=== PATIENT | female | born 2000 | race Caucasian/White ===

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

== ENCOUNTER 2019-03-10 19:06 | Emergency (ER) | payer OTHER ==
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
[2019-03-10] MEDS ORDERED: CYCLOBENZAPRINE 10 MG TAB PO ONE (23:23)
[2019-03-10] MEDS ORDERED: IBUPROFEN 400 MG TAB PO ONE (23:23)
[2019-03-10] MEDS ORDERED: ACETAMINOPHEN 500 MG TAB PO ONE (23:23)
[2019-03-11 00:44] LABS: Color,Urine Straw (Yellow); HCG Qualitative,Urine Negative (Negative); Protein,Urine <15 mg/dL mg/dL (Negative)
[2019-03-11 00:45] LABS: Urobilinogen,Urine < 2.0 mg/dL (<2.0)
[2019-03-11 00:46] LABS: Blood,Urine NEG (Negative)
[2019-03-11 00:48] LABS: Ictotest,Urine NEG (Negative)
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
[2019-03-11 02:09] VITALS: BP 96/64
[2019-03-11 05:22] LABS: Bilirubin,Urine NEG (Negative)
== END 2019-03-11 02:46 | disposition home or self-care (01) ==
LOC: ED 19:06
DX: M62.830 Muscle spasm of back (principal); M62.838 Other muscle spasm; Z79.899 Other long term (current) drug therapy; V49.59XA Passenger injured in collision with other motor vehicles in traffic accident, initial encounter; Y93.89 Activity, other specified; Y92.410 Unspecified street and highway as the place of occurrence of the external cause; Y99.8 Other external cause status
CPT/HCPCS: 72040; 72100; 81001; 81025

== ENCOUNTER 2019-06-26 17:25 | Emergency (ER) | payer SELFPAY | END 2019-06-26 21:40 | disposition home or self-care (01) | LOC: ED 17:25 | DX: J02.9 Acute pharyngitis, unspecified (principal); F12.90 Cannabis use, unspecified, uncomplicated; Z79.899 Other long term (current) drug therapy | CPT/HCPCS: 36415; 71045; 80053; 82140; 82805; 85025; 85610; 86308; 87040; 87086; 87116; 87430; 96365; 96367; 96375; 99285; J0696; J1100; J1885; J2405; J7030 ==

== ENCOUNTER 2019-07-01 20:06 | Emergency (ER) | payer SELFPAY ==
[2019-07-01 21:16] LABS: Basophils % (Auto) 0.6 % (0.0-1.8); Eosinophils % (Auto) 0.5 % (0.0-4.3); Hematocrit 36.8 % (30.3-42.9); Hemoglobin 12.1 gm/dl (10.1-14.3); Lymphocytes # (Auto) 1.5 K/mm3 (1.2-5.4); Lymphocytes % (Auto) 19.3 % (13.4-35.0); Mean Corpuscular HGB Conc 33 % (30-34); Mean Corpuscular Volume 89 fl (79-97); Monocytes # (Auto) 0.6 K/mm3 (0.0-0.8); Monocytes % (Auto) 8.1 % (0.0-7.3); Platelet Count 378 K/mm3 (140-440); Red Blood Count 4.15 M/mm3 (3.65-5.03); Red Cell Distribution Width 14.4 % (13.2-15.2)
[2019-07-01 21:30] LABS: Alanine Aminotransferase 14 units/L (7-56); Albumin 3.6 g/dL (3.9-5); BUN/Creatinine Ratio 10; Blood Urea Nitrogen 7 mg/dL (7-17); Calcium 9.4 mg/dL (8.4-10.2); Hemolysis Index 29
[2019-07-01] MEDS ORDERED: ACETAMINOPHEN 500 MG TAB PO ONE (21:31)
--- NOTE | 2019-07-01 22:07 | Emergency Department Report ---
ED General Adult HPI - General Chief complaint: Upper Respiratory Infection Stated complaint: FEVER/BODY ACHES Time Seen by Provider: 07/01/19 21:30 Source: patient, EMS ( EMS documentation not available at time of chart dictation ), RN notes reviewed, old records reviewed Mode of arrival: Ambulatory Limitations: No Limitations - History of Present Illness Initial comments: Please note that for the patient's entire history and physical examination, I had on complete and appropriate personal protective equipment. The patient is a 19-year-old female. She is not known to myself previously. She complains of sore throat, fever, dry cough, body aches, chest wall tightness, malaise and fatigue. The patient is a rather poor historian. She reports that she tested positive for strep throat at another hospital, and was given antibiotics, presented to this hospital a few days ago for similar symptoms, had a negative throat culture, negative rapid strep, negative Monospot, negative chest x-ray, negative urinalysis, and was discharged with change in antibiotics and supportive care. Her symptoms of sore throat, cough, malaise and fever have been going on for about a week and 1/2 to 2 weeks. She denies oral contraceptive use, , recent and delivery, and denies DVT and pulmonary embolism risk factors. She indicates that she is feeling "dehydrated." The patient is also noted to be face timing and playing on a cellular phone. Patient reports no episodes of stool within the past 24 hours. She denies irritative and obstructive urinary symptoms. -: Gradual, week(s) Location: left, right, upper extremity, lower extremity Quality: aching Consistency: intermittent Improves with: rest Worsens with: movement - Related Data Previous Rx's Medication Instructions Recorded Last Taken Type Amoxicillin [Amoxicillin TAB] 875 mg PO BID #14 tablet 04/12/16 Unknown Rx Fluconazole [Diflucan TAB] 150 mg PO ONCE #1 tablet 04/12/16 Unknown Rx Neomy/Polymyx B/Hc (Otic) Soln 4 drops .ROUTE TID #1 bottle 04/12/16 Unknown Rx [Cortisporin (Otic) Soln] Amoxicillin 500 mg PO Q12H #20 capsule 03/03/18 Unknown Rx Ibuprofen [Motrin] 600 mg PO Q8H PRN #20 tablet 03/03/18 Unknown Rx Cyclobenzaprine HCl [Flexeril 5 MG 5 mg PO Q8H PRN #21 tab 03/11/19 Unknown Rx TAB] Ibuprofen [Motrin] 600 mg PO Q8H PRN #24 tablet 03/11/19 Unknown Rx Clindamycin [Clindamycin CAP] 300 mg PO Q8H #21 cap 06/26/19 Unknown Rx HYDROcodone/ACETAMINOPHEN 15 ml PO Q6H PRN #150 solution 06/26/19 Unknown Rx [Hydrocodon-Acetamin 7.5-325/15] Ondansetron [Zofran Odt] 4 mg PO Q8HR #10 tab.rapdis 06/26/19 Unknown Rx prednisoLONE [Prednisolone] 45 mg PO DAILY 5 Days solution 06/26/19 Unknown Rx Allergies Allergy/AdvReac Type Severity Reaction Status Date / Time No Known Allergies Allergy Verified 03/03/18 16:07 ED Review of Systems ROS: Stated complaint: FEVER/BODY ACHES Other details as noted in HPI Constitutional: fever, malaise, weakness Eyes: denies: eye discharge ENT: throat pain, congestion Respiratory: cough Cardiovascular: as per HPI. denies: syncope Gastrointestinal: diarrhea. denies: vomiting Genitourinary: as per HPI. denies: urgency Musculoskeletal: arthralgia, myalgia Skin: denies: lesions Neurological: as per HPI, weakness Psychiatric: as per HPI Hematological/Lymphatic: as per HPI ED Past Medical Hx - Past Medical History Previous Medical History?: No - Surgical History Past Surgical History?: No - Social History Smoking Status: Never Smoker - Medications Home Medications: Home Medications Medication Instructions Recorded Confirmed Last Taken Type Amoxicillin [Amoxicillin TAB] 875 mg PO BID #14 tablet 04/12/16 Unknown Rx Fluconazole [Diflucan TAB] 150 mg PO ONCE #1 tablet 04/12/16 Unknown Rx Neomy/Polymyx B/Hc (Otic) Soln 4 drops .ROUTE TID #1 bottle 04/12/16 Unknown Rx [Cortisporin (Otic) Soln] Amoxicillin 500 mg PO Q12H #20 capsule 03/03/18 Unknown Rx Ibuprofen [Motrin] 600 mg PO Q8H PRN #20 tablet 03/03/18 Unknown Rx Cyclobenzaprine HCl [Flexeril 5 MG 5 mg PO Q8H PRN #21 tab 03/11/19 Unknown Rx TAB] Ibuprofen [Motrin] 600 mg PO Q8H PRN #24 tablet 03/11/19 Unknown Rx Clindamycin [Clindamycin CAP] 300 mg PO Q8H #21 cap 06/26/19 Unknown Rx HYDROcodone/ACETAMINOPHEN 15 ml PO Q6H PRN #150 solution 06/26/19 Unknown Rx [Hydrocodon-Acetamin 7.5-325/15] Ondansetron [Zofran Odt] 4 mg PO Q8HR #10 tab.rapdis 06/26/19 Unknown Rx prednisoLONE [Prednisolone] 45 mg PO DAILY 5 Days solution 06/26/19 Unknown Rx ED Physical Exam - General Limitations: No Limitations General appearance: alert, in no apparent distress - Head Head exam: Present: atraumatic, normocephalic - Eye Eye exam: Present: normal appearance, EOMI. Absent: nystagmus - ENT ENT exam: Present: normal exam, normal orophraynx, mucous membranes moist, TM's normal bilaterally, normal external ear exam - Neck Neck exam: Present: normal inspection, full ROM. Absent: tenderness, meningismus - Respiratory Respiratory exam: Present: normal lung sounds bilaterally. Absent: respiratory distress, wheezes, rales, rhonchi, stridor, chest wall tenderness, accessory muscle use, decreased breath sounds, prolonged expiratory - Cardiovascular Cardiovascular Exam: Present: normal rhythm, tachycardia, normal heart sounds. Absent: systolic murmur, diastolic murmur, rubs, gallop - GI/Abdominal GI/Abdominal exam: Present: soft. Absent: distended, tenderness, guarding, rebound, rigid, pulsatile mass - Extremities Exam Extremities exam: Present: normal inspection, full ROM, other (2+ pulses noted in the bilateral upper and lower extremities. There is no palpable cord. negative Homans sign. Muscular compartments are soft. The pelvis is stable.). Absent: pedal edema, calf tenderness - Back Exam Back exam: Present: normal inspection, full ROM. Absent: tenderness, CVA tenderness (R), CVA tenderness (L), paraspinal tenderness, vertebral tenderness - Neurological Exam Neurological exam: Present: alert, oriented X3, normal gait, other (No facial droop. Tongue midline. Extraocular movements intact bilaterally. Facial sensation intact to light touch in V1, V2, V3 distribution bilaterally. 5 and a 5 strength in 4 extremities. Sensation intact to light touch in 4 extremities.). Absent: motor sensory deficit - Psychiatric Psychiatric exam: Present: flat affect - Skin Skin exam: Present: warm, dry, intact, normal color. Absent: rash ED Course Vital Signs 07/01/19 07/01/19 20:36 22:56 Temperature 100.2 F H 98.1 F Pulse Rate 103 H 77 Respiratory 20 16 Rate Blood Pressure 114/78 Blood Pressure 113/64 [Right] O2 Sat by Pulse 98 95 Oximetry ED Medical Decision Making - Lab Data Result diagrams: 07/01/19 21:05 07/01/19 21:05 Vital Signs 07/01/19 20:36 Temperature 100.2 F H Pulse Rate 103 H Respiratory 20 Rate Blood Pressure 114/78 O2 Sat by Pulse 98 Oximetry Lab Results 07/01/19 07/01/19 07/01/19 Range/Units 21:05 21:05 21:05 WBC 7.5 (4.5-11.0) K/mm3 RBC 4.15 (3.65-5.03) M/mm3 Hgb 12.1 (10.1-14.3) gm/dl Hct 36.8 (30.3-42.9) % MCV 89 (79-97) fl MCH 29 (28-32) pg MCHC 33 (30-34) % RDW 14.4 (13.2-15.2) % Plt Count 378 (140-440) K/mm3 Lymph % (Auto) 19.3 (13.4-35.0) % [place] % (Auto) 8.1 H (0.0-7.3) % Eos % (Auto) 0.5 (0.0-4.3) % Baso % (Auto) 0.6 (0.0-1.8) % Lymph # 1.5 (1.2-5.4) K/mm3 [place] # 0.6 (0.0-0.8) K/mm3 Eos # 0.0 (0.0-0.4) K/mm3 Baso # 0.0 (0.0-0.1) K/mm3 Seg Neutrophils % 71.5 H (40.0-70.0) % Seg Neutrophils # 5.4 (1.8-7.7) K/mm3 Sodium 140 (137-145) mmol/L Potassium 3.7 (3.6-5.0) mmol/L Chloride 100.0 (98-107) mmol/L Carbon Dioxide 27 (22-30) mmol/L Anion Gap 17 mmol/L BUN 7 (7-17) mg/dL Creatinine 0.7 (0.7-1.2) mg/dL Estimated GFR > 60 ml/min BUN/Creatinine Ratio 10 % Glucose 100 (65-100) mg/dL Calcium 9.4 (8.4-10.2) mg/dL Total Bilirubin 0.20 (0.1-1.2) mg/dL AST 15 (5-40) units/L ALT 14 (7-56) units/L Alkaline Phosphatase 57 (35-129) units/L Total Protein 8.0 (6.3-8.2) g/dL Albumin 3.6 L (3.9-5) g/dL Albumin/Globulin Ratio 0.8 % Lipase 21 (13-60) units/L HCG, Qual Negative (Negative) - EKG Data -: EKG Interpreted by Me - EKG Data 07/01/19 22:41 Sinus rhythm, 86 bpm, normal axis, QTC 457 ms, motion artifact, the EKG is not a STEMI, there is no prior for comparison. - Radiology Data Radiology results: pending, report reviewed, image reviewed interpreted by me: X-ray of the chest today appears to be unremarkable. Recent x-rays are reviewed and appreciated, they are negative for acute disease. 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 The patient has a low-grade temperature, tachycardia has resolved, but is otherwise well-appearing, with reassuring vital signs. Does not meet criteria for hospitalization or admission. We would recommend supportive care, discontinuation of antibiotics, plenty of fluids, and outpatient follow-up with self isolation and self quarantining. Discussed this with the patient, she will be discharged with appropriate outpatient instructions, to follow-up, return precautions are reviewed Critical care attestation.: If time is entered above; I have spent that time in minutes in the direct care of this critically ill patient, excluding procedure time. ED Disposition Clinical Impression: Acute febrile illness, Suspected 2019 novel coronavirus infection Disposition: DC-01 TO HOME OR SELFCARE Is pt being admited?: No Does the pt Need Aspirin: No Condition: Stable Instructions: COVID-19, Viral Syndrome (ED) Additional Instructions: Please drink 4 to 6 cups of water per day, avoid consumption of alcohol, and eat at least 3-6 meals per day. Patient should self isolate, self quarantine, and avoid interactions with other individuals as best as possible. Patient most likely has viral syndrome, possible viral pharyngitis/throat infection, which may last for a few days, or even a few weeks. Symptoms may even be intermittent. There is typically no care for this. Patient may take Tylenol [id number], 500 mg by mouth, every 4-6 hours, alternating with ibuprofen [id number], 400 mg with food, every 6 hours as needed for fever and/or pain. Please follow-up with your primary care physician within 7 to 10 days for repeat checkup/evaluation. Please return to the emergency room right away with new, worsened or different symptoms, or symptoms not present on the initial emergency room evaluation. Referrals: ALEISHA LEUNG MD [Staff Physician] - 7-10 days [facility] [Provider Group] - 7-10 days Forms: Work/School Release Form(ED)
[2019-07-01 22:56] VITALS: BP 113/64
--- NOTE | 2019-07-01 22:56 | XRay Report ---
CHEST 1 VIEW 2209 INDICATION / CLINICAL INFORMATION: hx of cp. COMPARISON: 06/26/2019 FINDINGS: SUPPORT DEVICES: None HEART / MEDIASTINUM: No significant abnormality. LUNGS / PLEURA: No significant pulmonary or pleural abnormality. No pneumothorax. ADDITIONAL FINDINGS: No significant additional findings. IMPRESSION: No significant acute abnormality Signer Name: Alfonzo Mcneal MD Signed: 07/01/2019 10:51 PM Workstation Name: [id number]
== END 2019-07-01 22:57 | disposition home or self-care (01) ==
LOC: ED 20:06
DX: R50.9 Fever, unspecified (principal); Z20.828 Contact with and (suspected) exposure to other viral communicable diseases; Z79.899 Other long term (current) drug therapy
CPT/HCPCS: 36415; 71045; 80053; 83690; 84703; 85025; 93005

== ENCOUNTER 2019-08-24 11:57 | Emergency (ER) | payer SELFPAY ==
[2019-08-24 12:05] VITALS: BP 106/74
--- NOTE | 2019-08-24 12:20 | Emergency Department Report ---
Chief Complaint: Skin/Abscess/Foreign Body Stated Complaint: SPIDER BITE ON LEG Time Seen by Provider: 08/24/19 12:14 - HPI History of Present Illness: 19-year-old female presents the ED complaining of some sort of insect bite to her right lower thigh x3 days ago. Patient states that her mom had some clindamycin in the house which she has been taking. Patient states she just came to have it looked at to make sure is okay. She denies any swelling, pus or lesions to the area. She denies fever/chills/nausea vomiting difficulty swallowing - ROS Review of Systems: As noted in HPI - Exam Vital Signs: Vital Signs 08/24/19 12:02 Temperature 98.2 F Pulse Rate 76 Respiratory 14 Rate Blood Pressure 106/74 O2 Sat by Pulse 100 Oximetry Physical Exam: GENERAL: Alert and oriented x3, no apparent distress, Normal Gait, atraumatic. HEAD: Head is normocephalic and a-traumatic. SKIN: Warm and dry, No lesions, No ulceration or induration present. No indentation on skin. MSE screening note: Focused history and physical exam performed. Due to findings the following was ordered: ED Medical Decision Making - Medical Decision Making 19-year-old female presents status post insect bite. Discussed with patient to apply heat to the area, take Benadryl [id number] as an antihistamine. Discussed to follow-up with primary care physician. Vital signs are normal patient is in no acute distress ED Disposition for MSE Clinical Impression: Insect bite Disposition: Z-07 MED SCREENING EXAM-LEFT Is pt being admited?: No Does the pt Need Aspirin: No Condition: Stable Instructions: Insect Bite or Sting (ED) Additional Instructions: Make sure to follow up with the primary care physician as discussed. If you have any worsening symptoms or develop new symptoms please return to ED immediately. Referrals: [facility] [Outside] - 3-5 Days [facility] [Outside] - 3-5 Days Forms: Work/School Release Form(ED) Time of Disposition: 12:16
== END 2019-08-24 12:30 | disposition left against medical advice (07) ==
LOC: ED 11:57
DX: Z53.21 Procedure and treatment not carried out due to patient leaving prior to being seen by health care provider (principal)